=== PATIENT | female | born 1970 | race Two or more races ===

== ENCOUNTER 2021-04-28 14:21 | Emergency (ER) | payer MEDICAID, OTHER ==
[~2021-04-28] VITALS: Ht 167.6 cm; Wt 67.6 kg
[2021-04-28 14:23] VITALS: BP 123/73
== END 2021-04-28 17:53 | disposition left against medical advice (07) ==
LOC: ER 14:21
DX: S09.90XA Unspecified injury of head, initial encounter (principal); Z53.21 Procedure and treatment not carried out due to patient leaving prior to being seen by health care provider; W18.39XA Other fall on same level, initial encounter; Y93.89 Activity, other specified; Y92.89 Other specified places as the place of occurrence of the external cause; Y99.8 Other external cause status
CPT/HCPCS: 70450